=== PATIENT | female | born 1965 ===

== ENCOUNTER 2017-01-29 09:19 | Emergency (ER) | payer SELFPAY ==
[2017-01-29 09:54] LABS: ABSOLUTE NEUTROPHIL COUNT 6.2 K/mm3 (1.8-7.7); BASO % 0.2 % (0.2-1.0); EOS # 0.1 (0.0-0.5); EOS % 1.3 % (0.9-2.9); HEMATOCRIT 38.1 % (37.0-47.0); HEMOGLOBIN 12.9 gm/l (12.0-16.0); IMM NEUT% 0.2 % (0-1); LYMPH # 1.4 (1.0-4.8); LYMPH % 16.6 % (15-45); MEAN CELL VOLUME 86.4 fl (81.0-99.0); MEAN CORPUSCULAR HEMOGLOBIN 29.3 pg (27.0-31.0); MEAN CORPUSCULAR HGB CONC 33.9 g/dl (33.0-37.0); MEAN PLATELET VOLUME 9.1 fl (7.4-10.4); MONO # 0.5 (0.0-0.8); MONO % 6.2 % (4-12); NEUT % 75.5 % (43-75); PLATELET COUNT 275 K/mm3 (130-400); RED CELL DISTRIBUTION WIDTH 13.6 % (11.5-14.5)
[2017-01-29] MEDS ORDERED: FENTANYL 100 MCG/2 ML VIAL ONE (09:54)
[2017-01-29] MEDS ORDERED: LACTATED RINGERS 1,000 ML ONE (09:54)
[2017-01-29 10:10] LABS: INR 3.02; PROTHROMBIN TIME 33.6 SECONDS (9.3-11.4)
[2017-01-29 10:14] LABS: ALB/GLOB RATIO 1.3 (>1.0); CALCIUM 8.8 mg/dL (8.6-10.3)
--- NOTE | 2017-01-29 10:46 | RAD ---
History: Left shoulder pain. Unable to lift arm. Comparison: None. Technique: 2 views Findings: Multilevel thoracic degenerative changes are identified. The heart size is appropriate. No consolidation, effusion or pneumothorax is seen. The hilar and mediastinal structures are intact. Impression: 1. No active intra-thoracic disease.
== END 2017-01-29 11:19 | disposition home or self-care (01) ==
LOC: ED 09:19
DX: M25.512 Pain in left shoulder (principal); I10 Essential (primary) hypertension; J45.909 Unspecified asthma, uncomplicated; X50.0XXA Overexertion from strenuous movement or load, initial encounter; Y92.9 Unspecified place or not applicable
CPT/HCPCS: 85025; 80053; 85610; 84484; 71020; 99283 ×2; 96374; J3010; J7120